=== PATIENT | female | born 1960 | race Asian ===

== ENCOUNTER → 2019-03-17 09:27 | Outpatient (CLI) | payer OTHER, SELFPAY ==
--- NOTE | 2019-03-17 | DI.US.S_ITS ---
PROCEDURE: US ABDOMEN COMPLETE INDICATIONS: ELEVATED LIVER ENZYMES TECHNIQUE: Real-time scanning was performed of the abdominal and retroperitoneal organs, with image documentation. COMPARISON: None. FINDINGS: Liver: Liver is normal in size and homogeneous in echotexture. Gallbladder: Probable gallbladder sludge which does not appear to cloth layer and therefore soft tissue gallbladder wall mass cannot entirely be excluded. Doppler assessment demonstrates no internal flow. No gallbladder wall thickening. Biliary ducts: Intrahepatic bile ducts are prominent centrally and within the left lobe. Extrahepatic bile duct caliber measures 8.7 mm. Normal is 6-7 mm or less in diameter, or 10 mm or less post-cholecystectomy. Pancreas: Not well-visualized. Spleen: Spleen is normal in size and homogeneous in echotexture. Kidneys: Kidneys are normal in size and echotexture. Right kidney measures 10.0 cm long; left kidney measures 10.4 cm long. No hydronephrosis or nephrolithiasis. No solid masses. Aorta: Visualized aorta is normal in caliber at less than 3 cm. Iliacs: Proximal common iliac arteries are normal in caliber at less than 2.5 cm. IVC: Intrahepatic inferior vena cava is patent. Miscellaneous: No free abdominal fluid. IMPRESSION: 1. Probable sludge within the gallbladder; however soft tissue gallbladder wall mass cannot be excluded. Recommend short-term followup ultrasound in one month. 2. Prominence of the extrahepatic bile duct with mild intrahepatic ductal dilatation seen centrally and within the left lobe. Recommend clinical correlation and if indicated, MRCP could be performed for further evaluation. Dictated by: Faizan CRAWFORD Interpreted: Jeny Simmons MD on 03/17/2019 at 12:50 Approved by: Jeny Simmons M.D. on 03/17/2019 at 16:10
== END ==
PROVIDERS: Visit Provider Family Medicine
DX: R74.8 Abnormal levels of other serum enzymes (principal); K83.8 Other specified diseases of biliary tract
CPT/HCPCS: 76700

== ENCOUNTER → 2019-04-21 09:45 | Outpatient (CLI) | payer OTHER, SELFPAY ==
--- NOTE | 2019-04-21 | DI.MG.S_ITS ---
BILATERAL DIGITAL SCREENING MAMMOGRAM 3D/2D WITH CAD: 04/21/2019 CLINICAL: Routine screening. Baseline exam. No prior exams were available for comparison. The tissue of both breasts is heterogeneously dense. This may lower the sensitivity of mammography. Current study was also evaluated with a Computer Aided Detection (CAD) system. No significant masses, calcifications, or other findings are seen in either breast. IMPRESSION: NEGATIVE There is no mammographic evidence of malignancy. A 1 year screening mammogram is recommended. This exam was interpreted at Station ID: [id number]. NOTE: For mammograms, a report in lay terms will be sent to the patient. Approximately 15% of breast malignancies will not be visualized mammographically. In the management of a palpable breast mass, a negative mammogram must not discourage biopsy of a clinically suspicious lesion. Electronically Signed By: Radha patrick/valentino:04/21/2019 10:58:52 letter sent: Normal Exam ACR BI-RADS Category 1: Negative [id number]
--- NOTE | 2019-04-21 | DI.US.S_ITS ---
PROCEDURE: US ABDOMEN LIMITED INDICATIONS: ABNORMAL ULTRASOUND OF GB TECHNIQUE: Real-time focused scanning was performed of the abdomen, with image documentation. COMPARISON: [facility], US, US ABDOMEN COMPLETE, 03/17/2019, 10:17. FINDINGS: Liver is diffusely increased in echogenicity. Normal hepatic size. Heterogeneous possible hepatic mass seen adjacent to the angelica hepatis measuring roughly 7.2 x 4.7 cm. There is intra-and extrahepatic ductal dilatation with the extra hepatic bile duct measuring up to 8 mm. Possible soft tissue mass within the common bile duct measuring 1.8 x 1.2 x 1.1 cm which could also represent bile duct sludge as there is no vascularity. Pancreas is suboptimally visualized. Normal appearance of the spleen. IMPRESSION: 1. Possible right hepatic lobe mass adjacent to the angelica hepatis. Hepatic protocol MRI is recommended for further assessment. 2. Intra-and extrahepatic ductal dilatation and a soft tissue mass versus sludge may be present within the common bile that measure up to 1.8 cm. Dictated by: Faizan CRAWFORD Interpreted: Florinda Dickens MD on 04/21/2019 at 13:04 Approved by: Florinda Dickens M.D. on 04/21/2019 at 17:41
== END ==
PROVIDERS: PCP Family Medicine; Visit Provider Family Medicine
DX: R93.2 Abnormal findings on diagnostic imaging of liver and biliary tract (principal); K83.8 Other specified diseases of biliary tract; Z12.31 Encounter for screening mammogram for malignant neoplasm of breast
CPT/HCPCS: 76705; 77063; 77067

== ENCOUNTER → 2019-09-16 09:17 | Outpatient (CLI) | payer OTHER, SELFPAY ==
--- NOTE | 2019-09-16 | DI.MRI.S_ITS ---
PROCEDURE: MR ABDOMEN WO/W CON INDICATIONS: Possible liver mass on ultrasound. TECHNIQUE: Coronal HASTE, axial 2D FLASH in- and [id number]; axial breath-hold T2 FSE. Dynamic axial VIBE during the administration of contrast; post-contrast coronal VIBE or 2D FLASH with fat saturation from the hepatic dome to the iliac crests. Optional diffusion weighted imaging and ADC may be performed. COMPARISON: [facility], US, US ABDOMEN COMPLETE, 03/17/2019, 10:17. [facility], US, US ABDOMEN LIMITED, 04/21/2019, 11:18. FINDINGS: Image quality: Excellent. Lung bases: No basal pleural effusions. Heart size is normal. There is a 1.3 cm pericardial lymph node suspicious for metastases. Solid organs: There is an ill-defined masslike density in the area of angelica hepatis within the left hepatic lobe measuring 4.1 x 3.1 cm. There is echo of opacification of the left portal vein, suspicious for thrombosis. The left hepatic lobe demonstrates different intensity on precontrast images and stronger enhancement on postcontrast images in the right hepatic lobe. Liver is normal in size and enhancement. Gallbladder appears normal. Biliary system is non dilated. Pancreas is normal in morphology. Spleen is normal in size and enhancement. No adrenal nodules. Both kidneys demonstrate normal size and enhancement, without hydronephrosis. Nodes and vessels: Enlarged periportal and pancreatic lymph nodes are present. For instance, there is a 1.7 cm lymph node posterior to the pancreatic body. A 2.1 x 2.7 cm periportal lymph nodes identified. Aorta and inferior vena cava are normal in size. Bowel and peritoneum: Unenhanced bowel loops are normal in caliber. No free fluid. Bones and soft tissues: No ventral hernias. Bone marrow is normal in overall signal. IMPRESSION: 1. Ill-defined mass in the periportal area within the left hepatic lobe measuring 4.1 x 3.1 cm. Differential diagnoses include cholangiocarcinoma. A hepatic protocol CT with and without contrast may be helpful for further delineate the mass. MRCP is also suggested to evaluate intrahepatic and extrahepatic biliary ducts. 2. Absence of enhancement of left portal vein concerning for left portal vein thrombosis. Transient hepatic intensity and enhancement differences between the left and right hepatic lobe are likely related to portal thrombosis. 3. Pericardial, periportal and peripancreatic lymphadenopathy suspicious for metastases. Dictated by: Russel Franco M.D. on 09/16/2019 at 12:11 Approved by: Russel Franco M.D. on 09/16/2019 at 17:31
== END ==
PROVIDERS: PCP Family Medicine; Referring Provider Family Medicine; Visit Provider Family Medicine
DX: R93.2 Abnormal findings on diagnostic imaging of liver and biliary tract (principal); R16.0 Hepatomegaly, not elsewhere classified; R59.0 Localized enlarged lymph nodes
CPT/HCPCS: 74183; A9579

== ENCOUNTER → 2019-10-14 09:13 | Outpatient (CLI) | payer OTHER, SELFPAY ==
--- NOTE | 2019-10-14 | DI.MRI.S_ITS ---
PROCEDURE: MR ABDOMEN WO CON INDICATIONS: Liver mass centrally, seen by prior ultrasound and contrast enhanced MR scanning. Possible cholangiocarcinoma. TECHNIQUE: Coronal HASTE through the abdomen, axial 2-D FLASH in- and [id number], and breath-hold T2 FSE with fat saturation through the biliary system and pancreas. Oblique coronal and axial thin-slice HASTE, radial thick-slab HASTE centered on the extrahepatic bile ducts. Intravenous secretin: Not requested. COMPARISON: [facility], CT, CT ABDOMEN WO/W CON, 10/14/2019, 9:52. [facility], US, US ABDOMEN COMPLETE, 03/17/2019, 10:17. [facility], US, US ABDOMEN LIMITED, 04/21/2019, 11:18. [facility], MR, MR ABDOMEN WO/W CON, 09/16/2019, 11:01. FINDINGS: Image quality: Excellent. Pancreas and biliary system: Extra-hepatic biliary ducts are non dilated. Right sided intrahepatic bile ducts are only mildly dilated but there is again noted to be relatively prominent left-sided intrahepatic bile duct distention. This is secondary to a malignant appearing mass lesion centered at the left margin of the angelica hepatis superiorly, measuring up to 4.1 cm AP, 2.6 cm transverse and approximately 4.8 cm craniocaudad. The epicenter of this mass is the left main bile duct, and the mass has an appearance most consistent with cholangiocarcinoma. Irregular margin soft tissue is present within the upper common hepatic duct at its left margin and there is early stenosis of the right main hepatic duct at this time. The mass invades the upper margin of the common duct, best seen on coronal imaging series 6 image 8, where the adjacent cystic duct is patent without distention. The cystic duct is in close proximity to the mass lesion (coronal T2 imaging, series 6 image 8) with potential for near term impingement and development of gallbladder hydrops. Pancreas is normal in morphology, without adjacent soft tissue edema. Pancreatic duct is normal in caliber, without developmental anomalies. Gallbladder is currently not distended and does not appear to contain stones or neoplasm. Other solid organs: Liver is overall normal in size. Spleen is normal in size. No adrenal nodules. Both kidneys are normal in size, without hydronephrosis. Nodes and vessels: No retroperitoneal or mesenteric adenopathy by size criteria. Aorta and inferior vena cava are normal in size. Note is made of a 1.5 x 2.1 cm ovoid mass lesion within the pre-pericardial fat centered to the right of midline, just behind the inferior right lateral sternal border. By appearance and position this is most likely an early focus of metastatic adenopathy. Bowel and peritoneum: Unenhanced bowel loops are normal in caliber. No free fluid. Lung bases: No basal pleural effusions. Heart size is normal. Bones and soft tissues: No ventral hernias. Bone marrow is of normal overall signal. IMPRESSION: Large intrahepatic mass lesion centered on the left main bile duct, producing greater ductal impingement on the left than the right, with an appearance most consistent with cholangiocarcinoma. The mass lesion has caused mild right-sided intrahepatic biliary distention to developed and it is extending to impinge on the cystic duct with near term potential for development of gallbladder hydrops. No distant metastatic disease found within the retroperitoneum but there is a 1.5 x 2.1 cm gayle mass in the right pre-pericardial fat consistent with early gayle metastatic disease.. Dictated by: Pancho Long M.D. on 10/14/2019 at 11:38 Approved by: Pancho Long M.D. on 10/14/2019 at 11:52
[2019-10-14 09:46] LABS: Blood Urea Nitrogen 18 mg/dL (7-17); Calcium 10.3 mg/dL (8.4-10.2); Carbon Dioxide 34 mmol/L (22-32); Chloride 95 mmol/L (98-107); Estimated Glomerular Filt Rate > 60.0 mL/min (>60); Glucose 256 mg/dL (70-100); HEMOLYSIS < 15 (0-50); Sodium 136 mmol/L (137-145)
--- NOTE | 2019-10-14 12:13 | DI.CT.S_ITS ---
PROCEDURE: CT ABDOMEN WO/W CON INDICATIONS: LIVER MASS TECHNIQUE: 4 phase scanning was performed. Non-contrast 5 mm axial sections acquired from the diaphragm to the iliac crests. Following the administration of intravenous contrast, 5 mm thick arterial-phase, portal venous-phase, and 5-minute delayed phase images were acquired through the liver. 5 mm thick coronal and sagittal reformats were performed. For radiation dose reduction, the following was used: automated exposure control, adjustment of mA and/or kV according to patient size. COMPARISON: None. FINDINGS: Image quality: Excellent. Lung bases: Lung bases are clear. Heart size is normal. Note is made of a retrosternal right paramedian ovoid mass lesion within the pre-pericardial fat measuring up to 1.4 cm AP, 2.1 cm transverse and 2.2 cm craniocaudad. Liver: The there is a malignant appearing mass lesion centered on the left main hepatic bile duct which measures up to 5.1 cm AP, 2.9 cm transverse and 4.7 cm craniocaudad. The exact borders of this mass are difficult to accurately establish given segmental absence of fatty infiltration in the left hepatic lobe in addition to the mass and abnormal adjacent enhancement. The right hepatic lobe is diffusely fatty infiltrated. Other solid organs: Gallbladder does not appear abnormally distended. Biliary system is non dilated. Inferiorly but demonstrates abnormal dilatation at the left lateral and medial hepatic segments. There is only minimal prominence of the right anterior and posterior hepatic segmental intrahepatic ducts. The left-sided ductal mass extends inferiorly to impinge upon the superior left margin of the common hepatic duct and is adjacent to the expected position of the cystic duct insertion. Pancreas is normal in morphology. Spleen is normal in size and enhancement. No adrenal nodules. Both kidneys demonstrate normal size and enhancement, without hydronephrosis or nephrolithiasis. Nodes and vessels: No mesenteric adenopathy by size criteria. The there is an enlarged retroperitoneal lymph node at the gastrohepatic ligament seen centered on series 3 image 19 measuring up to 1.8 x 1.4 cm in maximal axial dimension with a craniocaudad length of 2.6 cm. Aorta and inferior vena cava are normal in size. Bowel and peritoneum: Unenhanced bowel loops are normal in caliber. No free fluid or air. Bones: No suspicious bony lesions. No vertebral body compression fractures. Miscellaneous: No ventral hernias. IMPRESSION: There is a malignant appearing mass that appears to emanate from the left main intrahepatic duct to produce both left lateral and left medial hepatic segmental biliary distention. This mass appears to have extended retrograde to about the upper margin of the common hepatic duct with early secondary slight dilatation of the right intrahepatic bile ducts. The gallbladder is not distended but the mass extends to adjacent to the cystic duct insertion and subsequent cystic duct and common duct impingement is anticipated. A previously identified pre-pericardial enlarged lymph node is present behind the right margin of the sternum, and there also is a newly identified lymph node that appears likely involved by metastatic disease at the gastrohepatic ligament, discussed above. Gastroenterology consultation for consideration of biliary stent placement likely is warranted. Bile duct biopsy presumably could be performed at that time. Dictated by: Pancho Long M.D. on 10/14/2019 at 12:26 Approved by: Pancho Long M.D. on 10/14/2019 at 12:38
== END ==
PROVIDERS: PCP Family Medicine; Referring Provider Family Medicine; Visit Provider Family Medicine
DX: R16.0 Hepatomegaly, not elsewhere classified (principal); R59.0 Localized enlarged lymph nodes; K83.8 Other specified diseases of biliary tract
CPT/HCPCS: 36415; 74170; 74181; 80048; Q9967

== ENCOUNTER 2022-01-18 15:42 | Emergency (ER) | payer OTHER, SELFPAY ==
[2022-01-18] VITALS (8 sets, daily range): BP systolic 129–131; BP diastolic 72–77; PULSE 72–91; RESP 7–17; O2SAT 86–100; BMI 23.8
--- NOTE | 2022-01-18 15:53 | DI.RAD.S_ITS ---
PROCEDURE: XR CHEST 1V INDICATIONS: altered mental status TECHNIQUE: One view of the chest was acquired. COMPARISON: None. FINDINGS: Surgical changes and devices: Right port catheter terminates at the cavoatrial junction. Lungs and pleura: Basal linear opacities probably atelectasis, less likely airspace disease such as aspiration. No pleural effusions. In the right lower lung, there is a nipple shadow versus nodule. Mediastinum: Mediastinal contours appear normal. Heart size is normal. Bones and chest wall: No suspicious bony lesions. Overlying soft tissues appear unremarkable. IMPRESSION: Right port catheter terminates at the cavoatrial junction. Suspected basilar atelectasis, versus mild airspace disease. No pleural effusions. In the right lower lung, there is a nipple shadow versus nodule. Dictated by: Nate Sykes M.D. on 01/18/2022 at 16:46 Approved by: Nate Sykes M.D. on 01/18/2022 at 16:49
[2022-01-18 16:07] LABS: Add Manual Diff / Slide Review NO; Basophils Absolute Auto 100 /uL (0-100); Basophils Percent Auto 1.3 % (0-2); Eosinophils Absolute Auto 200 /uL (0-450); Eosinophils Percent Auto 3.7 % (2-4); Hematocrit 35.5 % (36-46); Hemoglobin 11.6 g/dL (12.0-16.0); Lymphocytes Absolute Auto 1600 /uL (1100-4500); Lymphocytes Percent Auto 25.9 % (25-40); Mean Corpuscular HGB Conc 32.5 % (30-36); Mean Corpuscular Hemoglobin 28.5 PG (26-34); Mean Corpuscular Volume 87.8 fL (80-100); Monocytes Absolute Auto 1200 /uL (0-900); Neutrophils Absolute Auto 3100 /uL (1500-7000); Neutrophils Percent Auto 50.1 % (50-75); Platelet Count 464 X10^3/uL (150-400); Red Blood Cell Count 4.05 X10^6/uL (4.0-5.2); Red Cell Distribution Width 17.4 % (11.6-14.8); White Blood Cell Count 6.2 X10^3/uL (4.5-11.0)
[2022-01-18 16:11] LABS: Alanine Aminotransferase 39 IU/L (<35); Albumin 3.9 g/dL (3.5-5.0); Albumin Globulin Ratio 1.1 (1.0-2.8); Alkaline Phosphatase 119 U/L (38-126); Aspartate Aminotransferase 65 IU/L (14-36); BUN Creatinine Ratio 15.1 (6-22); Bilirubin Total 0.3 mg/dL (0.2-1.3); Blood Urea Nitrogen 21 mg/dL (7-17); Calcium 9.4 mg/dL (8.4-10.2); Carbon Dioxide 33 mmol/L (22-32); Chloride 101 mmol/L (98-107); Estimated Glomerular Filt Rate 44 mL/min (>60); Globulin 3.6 g/dL (1.7-4.1); Glucose 91 mg/dL (70-100); HEMOLYSIS < 15 (0-50); Potassium 3.9 mmol/L (3.4-5.1); Sodium 139 mmol/L (137-145); Total Protein 7.5 g/dL (6.3-8.2)
--- NOTE | 2022-01-18 16:39 | DI.CT.S_ITS ---
PROCEDURE: CT HEAD/BRAIN WO CON INDICATIONS: altered mental status, cholangiocarcinoma hx TECHNIQUE: Noncontrast 4.5 mm thick angled axial sections acquired from the foramen magnum to the vertex, with coronal and sagittal reformats. For radiation dose reduction, the following was used: automated exposure control, adjustment of mA and/or kV according to patient size. COMPARISON: None. FINDINGS: Image quality: Excellent. CSF spaces: Basal cisterns are patent. No extra-axial fluid collections. The ventricles are symmetric in size and shape. Brain: No intracranial bleeds or masses. Tiny old lacunar infarct in left basal ganglia is seen. There is cerebral volume loss for age, with resultant ventricular and sulcal prominence. There are periventricular and deep white matter chronic small vessel ischemic changes. There is intracranial internal carotid artery atherosclerosis. Skull and face: Calvarium and visualized facial bones appear intact, without suspicious lesions. Sinuses: Visualized sinuses and mastoids are clear. IMPRESSION: 1. No CT evidence of acute intracranial abnormalities. 2. Age-appropriate atrophy and mild white matter chronic small vessel ischemic changes. Dictated by: Shaun Delacruz M.D. on 01/18/2022 at 17:05 Approved by: Shaun Delacruz M.D. on 01/18/2022 at 17:05
--- NOTE | 2022-01-18 16:47 | ED_ITS ---
HPI - Altered Mental Status General Chief Complaint: Syncope Stated Complaint: Syncope Time Seen by Provider: 01/18/22 16:15 Source: patient and EMS Mode of arrival: EMS Limitations: no limitations History of Present Illness HPI narrative: This is a 61-year-old female with history of cholangiocarcinoma currently re ceiving chemo and radiation through [facility], diabetes on insulin. Patient is alert but does seem slightly confused. Her states that she has some baseline confusion but seemed very confused earlier today and he states at 1 point seemed unresponsive although he describes her as responding verbally to him through this. He states this was about an hour and a half ago about half an hour prior to contacting EMS. States the patient did have a dose of her oxycodone this morning. He noted her glucose was in the 200 range during this episode he gave 20 units of her insulin, by his description sounds like her short-acting insulin although he does not know the names and describes it as ?the right one. Patient is currently alert although she does seem a little sleepy but will respond to verbal stimuli. Her glucose was 80 in the field and in the 90s here today. She states she had a headache earlier today which is why she took the oxycodone she states it is resolved. She denies any neck or back pain. No chest pain or shortness of breath. She denies any nausea or vomiting. She denies any abdominal, back or flank pain. Denies any diarrhea or constipation. She states no melena or hematochezia. No dysuria urgency or frequency. states she seemed a little bit off balance recently. They both deny any surgeries besides a port placed in her right chest. No tobacco, no alcohol, no illicit. They moved here from [facility] 1 week ago. They hav e not established with a primary care locally. She does receive her care through [facility]. Related Data Home Medications Medication Instructions Recorded Confirmed Blood Glucose Monitoring Supplies #1 ea 11/21/20 11/22/20 bisacodyl PO PRN constipation 11/21/20 11/22/20 blood sugar diagnostic [GE100 miscellaneous DAILY 11/21/20 11/22/20 Blood Glucose Test Strip] dexamethasone See Rx Instructions PO 11/21/20 11/22/20 enoxaparin 60 mg/0.6 mL 60 mg SUBCUT Q12H 11/21/20 11/22/20 subcutaneous syringe melatonin 5 mg tablet 5 mg PO BEDTIME PRN 11/21/20 11/22/20 ondansetron HCl 8 mg tablet 8 mg PO Q8H PRN nausea and vomiting 11/21/20 11/22/20 pioglitazone 30 mg tablet 30 mg PO DAILY 11/21/20 11/22/20 polyethylene glycol 3350 [Miralax] PO 11/21/20 11/22/20 potassium chloride 20 mEq 20 meq PO DAILY 11/21/20 11/22/20 tablet,extended release prochlorperazine maleate 10 mg 10 mg PO Q6H PRN 11/21/20 11/22/20 tablet cholecalciferol (vitamin D3) 25 25 mcg PO DAILY 11/22/20 11/22/20 mcg (1,000 unit) capsule cyclobenzaprine 10 mg tablet 10 mg PO BEDTIME 11/22/20 11/22/20 Previous Rx's Medication Instructions Recorded Lantus SoloStar See Rx Instructions SUBCUT DAILY 11/25/20 #1 unit amitriptyline 100 mg tablet 100 mg PO BEDTIME #90 tabs 11/29/20 clonazepam 2 mg tablet 2 mg PO TID PRN anxiety #270 tabs 11/29/20 glipizide 10 mg tablet 10 mg PO BID #180 tabs 11/29/20 insulin glargine 100 unit/mL (3 10 unit (0.1 mL) SUBCUT QAM #15 mL 11/29/20 mL) subcutaneous pen (Lantus Solostar U-100 Insulin) pen needle, diabetic 32 gauge x #100 ea 11/29/20 (Microdot Insulin Pen Needle) sennosides 8.6 mg capsule (senna) 8.6 mg PO BEDTIME #90 caps 11/29/20 blood sugar diagnostic (Advanced #100 ea 12/06/20 Glucose Meter Test Strips) lancets (Lancets,Thin) #100 ea 12/06/20 fluoxetine 20 mg capsule 20 mg .Route .COMPLEX #90 caps 05/12/21 metformin 1,000 mg tablet See Rx Instructions .Route 05/12/21 .COMPLEX #180 tabs omeprazole 20 mg capsule,delayed See Rx Instructions .Route 05/12/21 release .COMPLEX #180 tabs nirmatrelvir 300 mg (150 mg x See Rx Instructions PO .COMPLEX 01/10/22 2)-ritonavir 100 mg tablet (EUA) #30 tabs (Paxlovid 300 mg () Allergies Allergy/AdvReac Type Severity Reaction Status Date / Time chlorzoxazone Allergy Intermediate Dizziness, Verified 01/18/22 17:13 [From Joy Chau] other Review of Systems Review of Systems ROS Unobtainable: All systems reviewed & are unremarkable except as noted in HPI and below Patient History Medical History Abnormal findings on diagnostic imaging of other parts of digestive tract Acute nonintractable headache Anxiety Cervical polyp Cholangiocarcinoma Constipation Gastro-esophageal reflux disease without esophagitis Hormone replacement therapy (HRT) Illiterate Insomnia Type 2 diabetes mellitus without complications Social History Smoking Status: Never smoker Smoking Status: Never smoker Exam Narrative Exam Narrative: GENERAL: Alert and oriented female, mild distress. Patient answers questions appropriately HEENT: Head normocephalic, atraumatic, EOMI, pupils reactive, face symmetric, moist mucous membranes NECK: Supple, full range of motion CARDIOVASCULAR: Regular rate and rhythm without murmurs, rubs or gallops. Patient has port on her right anterior chest which appears clean dry without any obvious signs of infection. RESPIRATORY: Breath sounds equal bilaterally, no wheezes rales or rhonchi. ABDOMEN: Soft, nontender. Nondistended. Normoactive bowel sounds all 4 quadrants. No guarding or rebound, rigidity, no mass : No CVA tenderness EXTREMITIES: Normal range of motion, no clubbing or edema. Neurovascularly intact. Normal range of motion of upper and lower extremities. NEUROLOGICAL: Cranial nerves II through XII grossly intact. Moving all extremities. No asterixis. SKIN: Warm, dry, no petechiae, no rashes or lesions. Initial Vital Signs Initial Vital Signs: Vital Signs Pulse Rate 72 01/18/22 15:48 Respiratory Rate 16 01/18/22 15:48 Pulse Oximetry 94 01/18/22 15:48 Oxygen Delivery Method 01/18/22 15:48 Course Orders Ordered: ED Orders 01/18/22 15:40 Complete Blood Count AUTO DIFF Stat Comprehensive Metabolic Panel Stat Lipase Stat 01/18/22 15:53 XR chest 1V Stat EKG-12 Lead Stat 01/18/22 16:20 Ammonia (NH3) Stat 01/18/22 16:39 CT head/brain wo con Stat 01/18/22 16:45 COVID19 -Nasal RAPID/Pre-Proc Stat 01/18/22 18:05 Urine Drug Screen, Rapid Stat Discontinued Medications Sodium Chloride (Normal Saline 0.9%) 1,000 mls @ 1,000 mls/hr IV BOLUS ONE Stop: 01/18/22 17:54 Last Infusion: 01/18/22 18:15 Dose: 0 mls/hr Documented By: Admin: 01/18/22 17:13 Dose: 1,000 mls/hr Documented By: KF Naloxone HCl (Naloxone 4 Mg Nasal [place]) 4 mg MISC SEEINSTR ONE Stop: 01/18/22 18:44 Last Admin: 01/18/22 18:56 Dose: 4 mg Documented By: JEFF Reevaluation(s) Time: 18:23 Vital Signs Vital signs: Vital Signs - 8 hr 01/18/22 15:48 01/18/22 15:54 01/18/22 16:00 Pulse Rate 72 90 Respiratory Rate 16 7 L Blood Pressure 129/77 Pulse Oximetry 94 97 Oxygen Delivery Method Room Air 01/18/22 16:00 01/18/22 16:30 01/18/22 16:30 Pulse Rate 91 H 89 Respiratory Rate 11 L 10 L Blood Pressure 131/72 Pulse Oximetry 98 Oxygen Delivery Method 01/18/22 17:01 01/18/22 17:30 01/18/22 18:00 Pulse Rate 88 80 88 Respiratory Rate 10 L Blood Pressure Pulse Oximetry 100 97 86 L Oxygen Delivery Method 01/18/22 18:30 Pulse Rate 86 Respiratory Rate 17 Blood Pressure Pulse Oximetry 96 Oxygen Delivery Method MDM - Altered Mental Status Lab Data Result diagrams: 01/18/22 15:40 01/18/22 15:40 Labs: Lab Results 01/18/22 01/18/22 01/18/22 Range/Units 15:40 15:40 15:40 WBC 6.2 (4.5-11.0) X10^3/uL RBC 4.05 (4.0-5.2) X10^6/uL Hgb 11.6 L (12.0-16.0) g/dL Hct 35.5 L (36-46) % MCV 87.8 (80-100) fL MCH 28.5 (26-34) PG MCHC 32.5 (30-36) % RDW 17.4 H (11.6-14.8) % Plt Count 464 H (150-400) X10^3/uL Neut % (Auto) 50.1 (50-75) % Lymph % (Auto) 25.9 (25-40) % [place] % (Auto) 19.0 H (3-14) % Eos % (Auto) 3.7 (2-4) % Baso % (Auto) 1.3 (0-2) % Neut # (Auto) 3100 (6490-0933) /uL Lymph # (Auto) 1600 (7131-4090) /uL [place] # (Auto) 1200 H (0-900) /uL Eos # (Auto) 200 (0-450) /uL Baso # (Auto) 100 (0-100) /uL Sodium 139 (137-145) mmol/L Potassium 3.9 (3.4-5.1) mmol/L Chloride 101 (98-107) mmol/L Carbon Dioxide 33 H (22-32) mmol/L BUN 21 H (7-17) mg/dL Creatinine 1.39 H (0.52-1.04) mg/dL Estimated GFR 44 L (>60) mL/min BUN/Creatinine Ratio 15.1 (6-22) Glucose 91 (70-100) mg/dL Calcium 9.4 (8.4-10.2) mg/dL Total Bilirubin 0.3 (0.2-1.3) mg/dL AST 65 H (14-36) IU/L ALT 39 H (<35) IU/L Alkaline Phosphatase 119 (38-126) U/L Ammonia (9-30) umol/L Total Protein 7.5 (6.3-8.2) g/dL Albumin 3.9 (3.5-5.0) g/dL Globulin 3.6 (1.7-4.1) g/dL Albumin/Globulin Ratio 1.1 (1.0-2.8) Lipase 513 H (23-300) U/L U Opiates 300ng/mL cut (Negative) Ur Oxycodone Screen (Negative) Urine Methadone Screen (Negative) Ur Barbiturates Screen (Negative) U Tricyclic Antidepress (Negative) Ur Phencyclidine Scrn (Negative) Ur Amphetamines Screen (Negative) U Methamphetamines Scrn (Negative) Ur MDMA Scrn (Ecstasy) (Negative) U Benzodiazepines Scrn (Negative) Urine Cocaine Screen (Negative) U Marijuana (THC) Screen (Negative) SARS-CoV-2 (PCR) (Negative) 01/18/22 01/18/22 01/18/22 Range/Units 16:20 16:45 18:05 WBC (4.5-11.0) X10^3/uL RBC (4.0-5.2) X10^6/uL Hgb (12.0-16.0) g/dL Hct (36-46) % MCV (80-100) fL MCH (26-34) PG MCHC (30-36) % RDW (11.6-14.8) % Plt Count (150-400) X10^3/uL Neut % (Auto) (50-75) % Lymph % (Auto) (25-40) % [place] % (Auto) (3-14) % Eos % (Auto) (2-4) % Baso % (Auto) (0-2) % Neut # (Auto) (4099-1909) /uL Lymph # (Auto) (3887-1764) /uL [place] # (Auto) (0-900) /uL Eos # (Auto) (0-450) /uL Baso # (Auto) (0-100) /uL Sodium (137-145) mmol/L Potassium (3.4-5.1) mmol/L Chloride (98-107) mmol/L Carbon Dioxide (22-32) mmol/L BUN (7-17) mg/dL Creatinine (0.52-1.04) mg/dL Estimated GFR (>60) mL/min BUN/Creatinine Ratio (6-22) Glucose (70-100) mg/dL Calcium (8.4-10.2) mg/dL Total Bilirubin (0.2-1.3) mg/dL AST (14-36) IU/L ALT (<35) IU/L Alkaline Phosphatase (38-126) U/L Ammonia 21 (9-30) umol/L Total Protein (6.3-8.2) g/dL Albumin (3.5-5.0) g/dL Globulin (1.7-4.1) g/dL Albumin/Globulin Ratio (1.0-2.8) Lipase (23-300) U/L U Opiates 300ng/mL cut Positive H (Negative) Ur Oxycodone Screen Positive H (Negative) Urine Methadone Screen Negative (Negative) Ur Barbiturates Screen Negative (Negative) U Tricyclic Antidepress Negative (Negative) Ur Phencyclidine Scrn Negative (Negative) Ur Amphetamines Screen Negative (Negative) U Methamphetamines Scrn Negative (Negative) Ur MDMA Scrn (Ecstasy) Negative (Negative) U Benzodiazepines Scrn Positive H (Negative) Urine Cocaine Screen Negative (Negative) U Marijuana (THC) Screen Negative (Negative) SARS-CoV-2 (PCR) Negative (Negative) Point of Care Testing Glucose POC 107 Urine Dip Bedside Urine Glucose Negative Bedside Urine Bilirubin - Negative Bedside Urine Ketone - Negative Urine Specific [place] 1.015 Bedside Urine Occult Blood - Negative Bedside Urine pH 6 Bedside Urine Protein - Negative Bedside Urine Urobilinogen - Negative Bedside Urine Nitrite - Negative Bedside Urine Leukocytes - Negative Esterase Imaging Data CT scan - head: Radiologist's Impression: [address] [id number] Scan ReportSigned Patient: Monica Lizama BMR#: [id number]: 1960cct:[id number]/Sex: 61 / FDate of Service: 01/18/22Loc: EDAccession Number: [id number]? ? Procedure: CT head/brain wo con Ordering Provider: Laura Alfaro D.O. PROCEDURE:? CT HEAD/BRAIN WO CON ? INDICATIONS:? altered mental status, cholangiocarcinoma hx ? TECHNIQUE:? Noncontrast 4.5 mm thick angled axial sections acquired from the foramen magnum to the vertex, with coronal and sagittal reformats.? For radiation dose reduction, the following was used:? automated exposure control, adjustment of mA and/or kV according to patient size.? ? COMPARISON:? None. ? FINDINGS:? Image quality:? Excellent.? ? CSF spaces:? Basal cisterns are patent.? No extra-axial fluid collections.? The ventricles are symmetric in size and shape.? ? Brain:? No intracranial bleeds or masses.? Tiny old lacunar infarct in left basal ganglia is seen.? There is cerebral volume loss for age, with resultant ventricular and sulcal prominence.? There are periventricular and deep white matter chronic small vessel ischemic changes.? There is intracranial internal carotid artery atherosclerosis.? ? Skull and face:? Calvarium and visualized facial bones appear intact, without suspicious lesions.? ? Sinuses:? Visualized sinuses and mastoids are clear.? ? IMPRESSION:? 1. No CT evidence of acute intracranial abnormalities. 2.? Age-appropriate atrophy and mild white matter chronic small vessel ischemic changes. ? ? Dictated by: Shaun Delacruz M.D. on 01/18/2022 at 17:05? ?? Approved by: Shaun Delacruz M.D. on 01/18/2022 at 17:05?? Chest x-ray: Radiologist's Impression: [address] [address] XRay Report Signed Patient: Monica Lizama MR#: [id number] : 1960 Acct:[id number] Age/Sex: 61 / F Date of Service: 01/18/22 Loc: ED Accession Number: [id number] ?? Procedure: XR chest 1V Ordering Provider: Laura Alfaro D.O. PROCEDURE:? XR CHEST 1V ? INDICATIONS:? altered mental status ? TECHNIQUE:? One view of the chest was acquired.? ? COMPARISON:? None. ? FINDINGS:? ? Surgical changes and devices:? Right port catheter terminates at the cavoatrial junction. ? Lungs and pleura:? Basal linear opacities probably atelectasis, less likely airspace disease such as aspiration.? No pleural effusions. In the right lower lung, there is a nipple shadow versus nodule. ? Mediastinum:? Mediastinal contours appear normal.? Heart size is normal.? ? Bones and chest wall:? No suspicious bony lesions.? Overlying soft tissues appear unremarkable.? ? IMPRESSION:? Right port catheter terminates at the cavoatrial junction.? Suspected basilar atelectasis, versus mild airspace disease.? No pleural effusions. ? In the right lower lung, there is a nipple shadow versus nodule.? ? Dictated by: Nate Sykes M.D. on 01/18/2022 at 16:46 ? ? Approved by: Nate Sykes M.D. on 01/18/2022 at 16:49?? ECG Data Attestation: I personally reviewed and interpreted this ECG as follows: Prior ECG tracings: not available for review Interpretation: Sinus rhythm rate of 95 [place] 130 QRS is 70 QTC of 449. Patient has T-wave inversion in 3 and AVF. Mild lateral leads. No other acute ST changes appreciated. MDM Narrative Medical decision making narrative: This is a 61-year-old female with diabetes, cholangiocarcinoma who was reported hyperglycemic at 200 range this morning. She seems slightly confused on examination. Patient is receiving chemo and radiation. Her labs show anemia with a hemoglobin of 11 and a crit of 35 with no priors for comparison normal white count and platelets of 464. No signs of hyponatremia or potassium changes, CO2 is 33 with a BUN of 21 and a creatinine of 1.39 last prior I have available had a normal creatinine of 0.75, 2 years ago. Bilirubins normal AST ALT are very mildly elevated at 65 and 39, normal alk-phos, lipase is slightly elevated. Ammonia level is negative. Patient's UDS is positive for benzos, opiates and oxycodone. Patient appears to have possible acute kidney injury although no recent renal labs available suspect some of her altered mental status may be related to polypharmacy. No other clear cause found. Urine is negative today for infection. Because of patient's reported cholangiocarcinoma history head CT was obtained, chest x-ray does not show major changes there is a nipple shadow versus nodule in the right lower lung with catheter found to be in placed. Head CT shows acute change or obvious signs of metastases. Discharge Plan Departure Patient Disposition: Home Clinical Impression: Acute alteration in mental status, Elevated serum creatinine Instructions: Naloxone for Opiate Overdose - WADOH Activity Restrictions/Additional Instructions: Follow-up with your team at [facility]. I would recommend having your renal function rechecked in the next week. Included is a order to have this done. You can call [phone] to try to help you find a primary care physician to es tablish for yourself and your spouse. Some of your symptoms today may have been related to your pain medications. You do not have to stop these medications but I would try decreasing your dosages to see if that is helpful. Please return for new or worsening symptoms, fevers, new chest pain, shortness of breath, persistent vomiting, worsening weakness, passing out, black or bloody stools or other new or concerning symptoms. Prescriptions: No Action Lantus SoloStar solution See Rx Instructions SUBCUT DAILY Qty: 1 11RF Rx Instructions: Inject 10 units under the skin every morning amitriptyline 100 mg tablet 100 mg PO BEDTIME Qty: 90 1RF glipizide 10 mg tablet 10 mg PO BID Qty: 180 1RF Lantus Solostar U-100 Insulin 100 unit/mL (3 mL) insulin pen 10 unit SUBCUT QAM Qty: 15 1RF (DME) pen needle, diabetic [Microdot Insulin Pen Needle] 32 gauge x needle See Rx Instructions .ROUTE .MEDSUPPLY Qty: 100 1RF Rx Instructions: Use 1 each daily clonazepam 2 mg tablet 2 mg PO TID PRN (Reason: anxiety) Qty: 270 1RF senna 8.6 mg capsule 8.6 mg PO BEDTIME Qty: 90 1RF (DME) lancets [Lancets,Thin] Misc See Rx Instructions .ROUTE .MEDSUPPLY Qty: 100 1RF Rx Instructions: Use once daily to check blood sugar (DME) Advanced Gluc Meter Test Strip Strip See Rx Instructions .ROUTE .MEDSUPPLY Qty: 100 1RF Rx Instructions: As directed metformin 1,000 mg tablet See Rx Instructions .ROUTE .COMPLEX Qty: 180 1RF Dose Instruction: TAKE ONE TABLET BY MOUTH TWICE A DAY WITH FOOD Rx Instructions: TAKE ONE TABLET BY MOUTH TWICE A DAY WITH FOOD omeprazole 20 mg capsule,delayed release(DR/EC) See Rx Instructions .ROUTE .COMPLEX Qty: 180 1RF Dose Instruction: TAKE ONE CAPSULE BY MOUTH TWICE A DAY Rx Instructions: TAKE ONE CAPSULE BY MOUTH TWICE A DAY fluoxetine 20 mg capsule 20 mg .ROUTE .COMPLEX Qty: 90 1RF Rx Instructions: 20 mg; one by mouth in morning, and noon and at bedtime. (TID) Paxlovid (EUA) 150 mg x 2- 100 mg tablet See Rx Instructions PO .COMPLEX Qty: 30 0RF Rx Instructions: take TWO 150 mg tablets of nirmatrelvir with ONE 100 mg tablet of ritonavir t wice daily for 5 days PO cholecalciferol (vitamin D3) 25 mcg (1,000 unit) capsule 25 mcg PO DAILY cyclobenzaprine 10 mg tablet 10 mg PO BEDTIME bisacodyl PO PRN (Reason: constipation) (DME) Blood Glucose Monitoring Supplies 0 .Route .MEDSUPPLY Qty: 1 enoxaparin 60 mg/0.6 mL syringe 60 mg SUBCUT Q12H dexamethasone tablet See Rx Instructions PO Rx Instructions: Take 1 tablet (4mg) by mouth every morning FOR 3 DAYS STARTING the day after chemotherapy. Repeat after each treatment as instructed. potassium chloride 20 mEq tablet extended release 20 meq PO DAILY blood sugar diagnostic miscellaneous DAILY Rx Instructions: Check blood sugar daily with one strip ondansetron HCl 8 mg tablet 8 mg PO Q8H PRN (Reason: nausea and vomiting) polyethylene glycol 3350 PO pioglitazone 30 mg tablet 30 mg PO DAILY prochlorperazine maleate 10 mg tablet 10 mg PO Q6H PRN melatonin 5 mg tablet 5 mg PO BEDTIME PRN Referrals: Kendall Redding MD [Physician] - Wilmer Daniel MD [Primary Care Provider] - Visit Report Forms: Patient Portal/API
[2022-01-18 16:59] LABS: Ammonia (NH3) 21 umol/L (9-30)
[2022-01-18] MEDS: SODIUM CHLORIDE 0.9% 1,000 ML 1000 ML IV (17:13)
[2022-01-18 17:25] LABS: Lipase 513 U/L (23-300)
[2022-01-18 17:27] LABS: COVID19 -Nasal RAPID Negative (Negative)
[2022-01-18 18:17] LABS: UR Morphine/Opiate cutoff 300 Positive (Negative); Ur Creatinine Normal (Normal); Ur Specific Gravity Normal (Normal); Urine Amphetamines Negative (Negative); Urine Barbiturates Negative (Negative); Urine Benzodiazepines Positive (Negative); Urine Cocaine Negative (Negative); Urine MDMA Negative (Negative); Urine Methadone Negative (Negative); Urine Methamphetamines Negative (Negative); Urine Oxycodone Positive (Negative); Urine Phencyclidine Negative (Negative); Urine Tetrahydrocannabinol Negative (Negative); Urine Tricyclic Antidepressant Negative (Negative); Urine pH Normal (Normal)
[2022-01-18] MEDS: NALOXONE 4 MG NASAL SPRAY MISC (18:56)
== END 2022-01-18 19:04 | disposition home or self-care (01) ==
PROVIDERS: Emergency Provider Emergency Medicine; PCP Family Medicine
DX: R41.82 Altered mental status, unspecified (principal); R79.89 Other specified abnormal findings of blood chemistry; C22.1 Intrahepatic bile duct carcinoma; Z20.822 Contact with and (suspected) exposure to COVID-19
CPT/HCPCS: 51701; 70450; 71045; 80053; 80305; 81003; 82140; 82962; 83690; 85025; 87635; 93005; 93010; 96360; 99284; C9803; A9270